=== PATIENT | male | born 1950 | race Caucasian/White ===

== ENCOUNTER 2018-09-24 13:16 | Day surgery (SDC) | payer MEDICARE, OTHER ==
[2018-09-24] MEDS ORDERED: Sensorcaine 0.25% 10 ML IJ ONE (13:17)
[2018-09-24] MEDS ORDERED: Xylocaine-Mpf 2% 5 Ml Vial IJ ONE (13:17)
[2018-09-24 14:04] LABS: INR 1.09 (0.8-3.0); PROTIME 12.3 SECONDS (8.83-12.87)
[2018-09-24] MEDS ORDERED: Ketamine HCl 50 MG/ML ONE (14:16)
[2018-09-24] MEDS ORDERED: DIPRIVAN 200 MG/20 ML IV ONE (14:16)
[2018-09-24] MEDS ORDERED: Lactated Ringers 1,000 ML IV ONE (15:26)
--- NOTE | 2018-09-24 16:19 | XRAY ---
Indication: Left sympathetic nerve block. Intraoperative fluoroscopy was provided for 30 seconds. 4 digital spot images submitted for interpretation demonstrates left posterior needle tip just anterior to a lumbar interspace level, possibly L2-L3. Small amount of contrast injected for needle tip placement. Correlate with intraoperative findings/report.
--- NOTE | 2018-09-24 16:21 | XRAY ---
30 seconds fluoroscopy time in surgery for left lumbar sympathetic nerve block.
== END 2018-09-24 14:48 | disposition home or self-care (01) ==
LOC: SDC-PAIN 13:16
PROVIDERS: ATTEND Psychiatry & Neurology Pain Medicine
DX: G90.522 Complex regional pain syndrome I of left lower limb (principal); Z79.01 Long term (current) use of anticoagulants; Z79.899 Other long term (current) drug therapy; E78.00 Pure hypercholesterolemia, unspecified; I51.9 Heart disease, unspecified; I10 Essential (primary) hypertension; I48.91 Unspecified atrial fibrillation; F32.9 Major depressive disorder, single episode, unspecified
CPT/HCPCS: 36415; 64520; 72020; 77002; 85610; J2704; Q9966

== ENCOUNTER 2018-11-19 11:06 | Day surgery (SDC) | payer MEDICARE, OTHER ==
[2018-11-19] MEDS ORDERED: Sensorcaine 0.25% 10 ML IJ ONE (11:07)
[2018-11-19] MEDS ORDERED: Xylocaine-Mpf 2% 5 Ml Vial IJ ONE (11:07)
[2018-11-19 11:57] LABS: INR 1.09 (0.8-3.0); PROTIME 12.3 SECONDS (8.83-12.87)
[2018-11-19] MEDS ORDERED: DIPRIVAN 200 MG/20 ML IV ONE ×2 (12:26→12:37)
[2018-11-19] MEDS ORDERED: Ketamine HCl 50 MG/ML ONE (12:27)
[2018-11-19] MEDS ORDERED: Lactated Ringers 1,000 ML IV ONE (12:50)
--- NOTE | 2018-11-19 13:45 | XRAY ---
Indication: Left lumbar sympathetic nerve root block. Intraoperative fluoroscopy was provided for 27 seconds. 2 digital spot images submitted for interpretation demonstrate left posterior needle tip projecting just anterior to unknown lumbar segment. Small amount of contrast injected for needle tip placement. Correlate with intraoperative findings/report.
--- NOTE | 2018-11-19 13:50 | XRAY ---
27 seconds fluoroscopy time in surgery for left lumbar sympathetic nerve block.
== END 2018-11-19 13:20 | disposition home or self-care (01) ==
LOC: SDC-PAIN 11:06
PROVIDERS: ATTEND Psychiatry & Neurology Pain Medicine
DX: G90.522 Complex regional pain syndrome I of left lower limb (principal); Z79.01 Long term (current) use of anticoagulants; Z79.899 Other long term (current) drug therapy; I10 Essential (primary) hypertension; E78.00 Pure hypercholesterolemia, unspecified
CPT/HCPCS: 36415; 64520; 72020; 77002; 85610; J2704; Q9966

== ENCOUNTER 2019-06-24 12:19 | Day surgery (SDC) | payer MEDICARE, OTHER ==
[2019-06-24] MEDS ORDERED: Marcaine 0.5% SDV 10 ML IJ ONE (12:20)
[2019-06-24] MEDS ORDERED: Xylocaine 1% Vial 30 ML PF IJ ONE (12:20)
[2019-06-24 12:46] LABS: INR 2.99 (0.8-3.0); PROTIME 34.6 SECONDS (8.83-12.87)
== END 2019-06-24 14:05 | disposition home or self-care (01) ==
LOC: SDC-PAIN 12:19
PROVIDERS: ATTEND Psychiatry & Neurology Pain Medicine
DX: M17.0 Bilateral primary osteoarthritis of knee (principal); J44.9 Chronic obstructive pulmonary disease, unspecified; I10 Essential (primary) hypertension; E78.00 Pure hypercholesterolemia, unspecified; Z79.01 Long term (current) use of anticoagulants; Z79.899 Other long term (current) drug therapy
CPT/HCPCS: 36415; 64454; 85610; J2001

== ENCOUNTER 2019-07-01 09:36 | Day surgery (SDC) | payer MEDICARE, OTHER ==
[2019-07-01] MEDS ORDERED: Marcaine 0.5% SDV 10 ML IJ ONE (09:37)
[2019-07-01 10:33] LABS: INR 2.64 (0.8-3.0); PROTIME 30.4 SECONDS (8.83-12.87)
[2019-07-01] MEDS ORDERED: DIPRIVAN 200 MG/20 ML IV ONE ×2 (10:39→10:52)
[2019-07-01] MEDS ORDERED: Ketamine HCl 50 MG/ML ONE ×2 (10:39→10:52)
[2019-07-01] MEDS ORDERED: Lactated Ringers 1,000 ML IV ONE (15:17)
--- NOTE | 2019-07-01 16:31 | XRAY ---
11 seconds fluoroscopy time in surgery for right genicular nerve block.
--- NOTE | 2019-07-01 16:31 | XRAY ---
13 seconds fluoroscopy time in surgery for left genicular nerve block.
--- NOTE | 2019-07-04 18:59 | XRAY ---
Indication: Right knee genicular nerve block. Intraoperative fluoroscopy was provided for 11 seconds. AP and lateral digital spot images submitted for interpretation demonstrate a right total knee replacement. There are needle tips projected toward both the medial and lateral margins of the supracondylar region of the distal right femur as well as a third needle directed toward the medial margin of the proximal right tibia. Correlate with intraoperative findings/report.
--- NOTE | 2019-07-04 19:01 | XRAY ---
Indication: Left knee genicular nerve block. Intraoperative fluoroscopy was provided for 13 seconds. AP and lateral digital spot images submitted for interpretation demonstrate needle tips at both the medial margin and the lateral margin of the supracondylar region of the distal left femur, as well as a third needle tip projected over the medial margin of the proximal left tibia. Correlate with intraoperative findings/report.
== END 2019-07-01 11:10 | disposition home or self-care (01) ==
LOC: SDC-PAIN 09:36
PROVIDERS: ATTEND Psychiatry & Neurology Pain Medicine
DX: M17.0 Bilateral primary osteoarthritis of knee (principal); I10 Essential (primary) hypertension; Z95.0 Presence of cardiac pacemaker; Z79.01 Long term (current) use of anticoagulants; Z86.79 Personal history of other diseases of the circulatory system; Z79.899 Other long term (current) drug therapy
CPT/HCPCS: 36415; 64454; 73560; 77002; 85610; J2704

== ENCOUNTER 2019-07-22 10:33 | Day surgery (SDC) | payer MEDICARE, OTHER ==
[2019-07-22] MEDS ORDERED: Sodium Chloride 0.9(Preservative Free) 10 ML IJ ONE (10:34)
[2019-07-22] MEDS ORDERED: CEFAZOLIN 2 GM-D5W BAG** 2 GM/50 ML ML IV ONE (10:34)
[2019-07-22] MEDS ORDERED: Xylocaine 1% Vial 30 ML PF IJ ONE (10:34)
[2019-07-22 12:09] LABS: INR 1.16 (0.8-3.0); PROTIME 13.2 SECONDS (8.83-12.87)
[2019-07-22] MEDS ORDERED: DIPRIVAN 200 MG/20 ML IV ONE ×3 (12:47→13:55)
[2019-07-22] MEDS ORDERED: Ketamine HCl 50 MG/ML ONE (12:47)
[2019-07-22] MEDS ORDERED: Lactated Ringers 1,000 ML IV ONE ×2 (12:52→14:29)
[2019-07-22] MEDS ORDERED: DILAUDID 2 MG INJECTION ONE (14:17)
[2019-07-22] MEDS ORDERED: PROVENTIL 2.5 MG/3 ML NEB IH ONE ×2 (14:19→14:35)
--- NOTE | 2019-07-22 14:40 | XRAY ---
2 minutes and 34 seconds fluoroscopy time in surgery for placement of spinal cord stimulator.
[2019-07-22 14:41] VITALS: PULSE 66; O2SAT 98
[2019-07-22] MEDS ORDERED: DILAUDID 2 MG INJECTION IV ONE (14:45)
== END 2019-07-22 14:55 | disposition home or self-care (01) ==
LOC: SDC-PAIN 10:33
PROVIDERS: ATTEND Psychiatry & Neurology Pain Medicine
DX: G89.4 Chronic pain syndrome (principal); I48.91 Unspecified atrial fibrillation; Z95.0 Presence of cardiac pacemaker; I10 Essential (primary) hypertension; E78.00 Pure hypercholesterolemia, unspecified; Z86.79 Personal history of other diseases of the circulatory system; Z79.01 Long term (current) use of anticoagulants; Z79.899 Other long term (current) drug therapy
CPT/HCPCS: 36415; 72100; 77002; 85610; 94640; J0690; J1170; J2001; J2704; J7609; A9270-GY

== ENCOUNTER 2019-09-09 10:55 | Day surgery (SDC) | payer MEDICARE, OTHER ==
[2019-09-09] MEDS ORDERED: BUPIVACAINE 0.5% VIAL IJ ONE (10:56)
[2019-09-09 11:26] LABS: INR 3.4 (0.8-3.0); PROTIME 38.9 SECONDS (8.83-12.87)
[2019-09-09] MEDS ORDERED: DIPRIVAN 200 MG/20 ML IV ONE (11:35)
[2019-09-09] MEDS ORDERED: Ketamine HCl 50 MG/ML ONE (11:35)
[2019-09-09] MEDS ORDERED: SUBLIMAZE 100 MCG/2 ML ONE (11:58)
--- NOTE | 2019-09-09 13:04 | XRAY ---
Indication: Left knee genicular nerve block. Intraoperative fluoroscopy was provided for 11 seconds. 2 lateral digital spot images submitted for interpretation demonstrates anterior needle tips projecting presumed medial/lateral supracondylar and medial tibial plateau. Correlate with intraoperative findings/report.
--- NOTE | 2019-09-09 13:13 | XRAY ---
11 seconds of fluoroscopy was used in surgery for a left genicular nerve block.
[2019-09-09] MEDS ORDERED: Lactated Ringers 1,000 ML IV ONE (14:35)
== END 2019-09-09 12:23 | disposition home or self-care (01) ==
LOC: SDC-PAIN 10:55
PROVIDERS: ATTEND Psychiatry & Neurology Pain Medicine
DX: M17.12 Unilateral primary osteoarthritis, left knee (principal); I10 Essential (primary) hypertension; Z95.0 Presence of cardiac pacemaker; E78.00 Pure hypercholesterolemia, unspecified; I48.91 Unspecified atrial fibrillation; Z79.01 Long term (current) use of anticoagulants; Z79.899 Other long term (current) drug therapy
CPT/HCPCS: 36415; 64454; 73560; 77002; 85610; J2704; J3010

== ENCOUNTER 2019-09-30 10:35 | Day surgery (SDC) | payer MEDICARE, OTHER ==
[2019-09-30 11:45] LABS: INR 1.15 (0.8-3.0)
[2019-09-30] MEDS ORDERED: Ketamine HCl 50 MG/ML ONE (12:29)
[2019-09-30] MEDS ORDERED: DIPRIVAN 200 MG/20 ML IV ONE (12:29)
[2019-09-30] MEDS ORDERED: SUBLIMAZE 100 MCG/2 ML ONE (12:31)
[2019-09-30] MEDS ORDERED: Lactated Ringers 1,000 ML IV ONE (14:26)
--- NOTE | 2019-09-30 15:00 | XRAY ---
Indication: Left knee genicular nerve block. Intraoperative fluoroscopy was provided for 15 seconds. 2 digital spot images of the left knee submitted for interpretation demonstrates anterior needle tips projecting medial/lateral supracondylar and medial tibial plateau. Correlate with intraoperative findings/report.
--- NOTE | 2019-09-30 15:02 | XRAY ---
15 seconds fluoroscopy time in surgery for left genicular nerve ablation.
== END 2019-09-30 13:05 | disposition home or self-care (01) ==
LOC: SDC-PAIN 10:35
PROVIDERS: ATTEND Psychiatry & Neurology Pain Medicine
DX: M17.12 Unilateral primary osteoarthritis, left knee (principal); I10 Essential (primary) hypertension; I48.91 Unspecified atrial fibrillation; E78.00 Pure hypercholesterolemia, unspecified; I51.7 Cardiomegaly; Z79.899 Other long term (current) drug therapy; Z79.01 Long term (current) use of anticoagulants
CPT/HCPCS: 36415; 64624; 73560; 77002; 85610; J2704; J3010

== ENCOUNTER 2020-03-23 11:05 | Day surgery (SDC) | payer MEDICARE, OTHER ==
[2020-03-23] MEDS ORDERED: Depo-Medrol 40 MG/ML IM ONE (11:06)
[2020-03-23] MEDS ORDERED: BUPIVACAINE 0.5% VIAL IJ ONE (11:06)
[2020-03-23] MEDS ORDERED: Xylocaine 1% Vial 30 ML PF IJ ONE (11:06)
[2020-03-23 11:34] LABS: INR 2.35 (0.8-3.0); PROTIME 26.8 SECONDS (8.83-12.87)
--- NOTE | 2020-03-23 14:58 | XRAY ---
Indication: Left knee injection. Intraoperative fluoroscopy provided for 16 seconds. Single digital spot image submitted for interpretation demonstrates needle tip projecting over the left femur intercondylar notch. Small amount of contrast injected for needle tip placement. Correlate with intraoperative findings/report.
--- NOTE | 2020-03-23 15:13 | XRAY ---
16 seconds fluoroscopy time in surgery for intra-articular injection of the left knee.
== END 2020-03-23 13:26 | disposition home or self-care (01) ==
LOC: SDC-PAIN 11:05
PROVIDERS: ATTEND Psychiatry & Neurology Pain Medicine
DX: M25.561 Pain in right knee (principal); Z79.899 Other long term (current) drug therapy; I10 Essential (primary) hypertension; I51.9 Heart disease, unspecified; E78.00 Pure hypercholesterolemia, unspecified; Z86.73 Personal history of transient ischemic attack (TIA), and cerebral infarction without residual deficits; I51.7 Cardiomegaly; Z95.0 Presence of cardiac pacemaker; Z79.01 Long term (current) use of anticoagulants
CPT/HCPCS: 20610; 36415; 73560; 77002; 85610; J1030; J2001; Q9966

== ENCOUNTER 2020-09-28 10:44 | Day surgery (SDC) | payer MEDICARE ==
[2020-09-28] MEDS ORDERED: Sodium Chloride 0.9(Preservative Free) 10 ML IJ ONE (10:45)
[2020-09-28] MEDS ORDERED: Depo-Medrol 40 MG/ML IM ONE (10:45)
[2020-09-28 11:45] LABS: INR 1.08 (0.8-3.0); PROTIME 12.8 SECONDS (9.4-12.5)
[2020-09-28] MEDS ORDERED: DIPRIVAN 200 MG/20 ML IV ONE (12:16)
[2020-09-28] MEDS ORDERED: Lactated Ringers 1,000 ML IV ONE (13:49)
--- NOTE | 2020-09-28 17:00 | XRAY ---
1 minute and 3 seconds of fluoroscopy was used in surgery for a right L4-S1 transforaminal LYDIA.
--- NOTE | 2020-09-30 09:37 | XRAY ---
Indication: Right L4-S1 transforaminal LYDIA. Intraoperative fluoroscopy was provided for 1 minute and 3 seconds. 3 digital spot images submitted for interpretation demonstrates posterior spinal needle tips projected over the expected course of the right L4 and L5 nerve roots. A small amount of contrast has been injected for needle tip placement. Correlate with intraoperative findings/report.
== END 2020-09-28 12:55 | disposition home or self-care (01) ==
LOC: SDC-PAIN 10:44
PROVIDERS: ATTEND Psychiatry & Neurology Pain Medicine
DX: M54.16 Radiculopathy, lumbar region (principal); Z79.899 Other long term (current) drug therapy; I10 Essential (primary) hypertension; Z79.01 Long term (current) use of anticoagulants
CPT/HCPCS: 36415; 64483; 64484; 72100; 77003; 85610; J1030; J2704; Q9966

== ENCOUNTER 2020-12-07 12:07 | Day surgery (SDC) | payer MEDICARE ==
[2020-12-07] MEDS ORDERED: Xylocaine 1% Vial 30 ML PF IJ ONE (12:08)
[2020-12-07] MEDS ORDERED: TORADOL IM ONE (12:08)
[2020-12-07] MEDS ORDERED: Decadron 4 MG INJ IV ONE (12:08)
[2020-12-07] MEDS ORDERED: Sodium Chloride 0.9(Preservative Free) 10 ML IJ ONE (12:08)
[2020-12-07 13:00] LABS: INR 1.16 (0.8-3.0); PROTIME 13.7 SECONDS (9.4-12.5)
[2020-12-07] MEDS ORDERED: MORPHINE SULFATE 2 MG INJ ONE (13:35)
--- NOTE | 2020-12-07 15:02 | XRAY ---
Indication: Cervical LYDIA. Intraoperative fluoroscopy provided for 52 seconds. 2 digital spot images submitted for interpretation demonstrates posterior midline needle tip projecting over cervical thoracic junction. Small amount of contrast injected for needle tip placement. Correlate with intraoperative findings/report.
--- NOTE | 2020-12-07 15:09 | XRAY ---
52 seconds fluoroscopy time in surgery for cervical LYDIA.
[2020-12-07] MEDS ORDERED: Lactated Ringers 1,000 ML IV ONE (17:29)
== END 2020-12-07 14:37 | disposition home or self-care (01) ==
LOC: SDC-PAIN 12:07
PROVIDERS: ATTEND Psychiatry & Neurology Pain Medicine
DX: M54.12 Radiculopathy, cervical region (principal); K21.9 Gastro-esophageal reflux disease without esophagitis; E78.5 Hyperlipidemia, unspecified; I10 Essential (primary) hypertension; M19.90 Unspecified osteoarthritis, unspecified site; I51.9 Heart disease, unspecified; Z79.01 Long term (current) use of anticoagulants; Z79.899 Other long term (current) drug therapy
CPT/HCPCS: 36415; 62321; 72040; 77003; 85610; J1100; J1885; J2001; J2270; Q9966